=== PATIENT | male | born 1950 | race Caucasian/White ===

== ENCOUNTER → 2017-05-20 | Outpatient (CLI) | payer MEDICARE ==
--- NOTE | 2017-05-20 16:42 | KCIC ---
Limited right foot ultrasound dated 05/20/2017. No comparison available. Clinical indication: Palpable lump posterior right foot. Findings: Sonographic imaging was performed over the area of palpable abnormality. Within the subcutaneous tissues just deep to the skin surface, there is a well-circumscribed nodular focus that is isoechoic to subcutaneous fat, measuring 8 mm maximum dimension. No increased vascularity. No abnormal shadowing or cystic component. IMPRESSION: Small subcutaneous nodule within the dorsal aspect of the foot, nonspecific but most likely related to a small lipoma. Recommend physical exam correlation. Electronically signed by: Hammad Vasquez MD (05/20/2017 4:38 PM) [facility]
== END | disposition home or self-care (01) ==
LOC: KCIC US 15:07
PROVIDERS: ATTEND Podiatrist Foot & Ankle Surgery
DX: M25.474 Effusion, right foot (principal)
CPT/HCPCS: 76881

== ENCOUNTER 2017-06-07 09:54 | Day surgery (SDC) | payer MEDICARE ==
[~2017-06-07] VITALS: Ht 182.9 cm; Wt 111.1 kg
[~2017-06-07 09:54] MED LIST: BUPIVACAINE MPF 0.5% 30 ML VIAL. ONE; DEXAMETHASONE SOD PHOS 4 MG/ML VIAL ONE; DOXA4TAB2 PO; HYDROmorphone 2 MG/ML VIAL IV PRN; IV RINGERS,LACTATED 1000ML 1,000 ML IV SCH; LACT1CAP6 PO; LIDOCAINE 1% PF 2 ML VIAL. ID PRN; LIDOCAINE 1% PF 30 ML VIAL. ONE; LOSA50TA6 PO; METO100T2 PO; MORPHINE SULFATE 2 MG/ML DISP.SYRIN. IV PRN; MULT1TAB52 PO; ONDANSETRON PF 4 MG/2 ML VIAL. IV PRN; POVIDONE-IODINE 10% TOPICAL OINTMENT 28GM TUBE. TP ONE; PROCHLORPERAZINE 10 MG/2 ML VIAL. IV PRN; fentaNYL PF VIAL 100 MCG/2 ML VIAL IV PRN
[2017-06-07 10:49] LABS: CALCIUM 9.1 mg/dL (8.5-10.1); CREATININE 1.1 mg/dL (0.7-1.3); POTASSIUM 4.2 mmol/L (3.5-5.1)
[2017-06-07 11:02] LABS: BASO % 1 % (0-3); EOS % 2 % (0-3); HEMATOCRIT 45.1 % (39.0-53.0); HEMOGLOBIN 15.7 g/dL (13.0-17.5); LYMPH # 1.7 x10^3/uL (1.0-4.8); LYMPH % 31 % (24-48); MEAN CORPUSCULAR HEMOGLOBIN 31 pg (25-35); MEAN CORPUSCULAR HGB CONC 35 g/dL (31-37); MEAN CORPUSCULAR VOLUME 88 fL (79-100); MONO % 6 % (0-9); NEUT % 61 % (31-73); PLATELET COUNT 182 x10^3/uL (140-400); RED BLOOD COUNT 5.11 x10^6/uL (4.30-5.70); RED CELL DISTRIBUTION WIDTH 13.1 % (11.5-14.5); WHITE BLOOD COUNT 5.5 x10^3/uL (4.0-11.0)
[2017-06-07] MEDS ORDERED: LIDOCAINE 2% PF Vial for OR 5 ML VIAL. ONE (11:27)
[2017-06-07] MEDS ORDERED: PROPOFOL 20 ML IV ONE (11:27)
--- NOTE | 2017-06-07 12:10 | HP ---
ADMIT DATE: 06/07/2017 CHIEF COMPLAINT: Right foot plantar lipoma. 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 They did ultrasound, confirms a growth there. Dr. Ravi asked to us see him as a preoperative evaluation. PAST MEDICAL HISTORY: Permanent pacemaker, hypotension and sleep apnea. ALLERGIES: FORMALDEHYDE, NICKEL AND CODEINE. FAMILY HISTORY: Noncontributory. SOCIAL HISTORY: He is a retired president and chief executive officer. He does not drink, smoke or take drugs. MEDICATIONS: Reviewed. REVIEW OF SYSTEMS: Negative other than his right foot. PHYSICAL EXAMINATION: VITAL SIGNS: Stable. GENERAL: He is alert, cooperative. His is present. She is good support for him. HEART: Sounds were normal. ABDOMEN: Soft, a little distended. EXTREMITIES: The right foot has a lipoma on the plantar surface. ASSESSMENT AND PLAN: Right foot lipoma. The patient seems at minimal risk for intraoperative or postoperative complications. We will go ahead and clear him for surgery for now. Postoperatively, he is going to need a wound care, physical therapy and occupational therapy. Continue his home meds, p.r.n. narcotics. Thank you very much for allowing us to participate in the care of this nice gentleman. ZOIE HAILE DO DR: SHO/evaristo JOB#: [id number] / [id number]
[2017-06-07] MEDS ORDERED: MIDAZOLAM HCL/PF 2 MG/2 ML VIAL. ONE (12:20)
[2017-06-07] MEDS ORDERED: fentaNYL PF VIAL 100 MCG/2 ML VIAL ONE (12:20)
--- NOTE | 2017-06-07 13:03 | PDOC4 ---
OPERATIVE NOTE: Surgeon: Breonna Preop DX: soft tissue mass lipoma right foot post op DX: Same Anesthesia: MAC with local Hemostasis: right ankle tourniquet at 250mmHg x 14 minutes EBL: 1mL Materials: 3-0 vicryl, 3-0 nylon Intraopertive findings: note thickening sub skin excised with white non descript ill organized fatty tissue removed and sent to pathology as specimen Patient tolerated anesthesia and procedure well transported to PACU with VSS and VSI to right foot KIRSTIE MCDONALD DPM Jun 07, 2017 13:03
[2017-06-07] MEDS ORDERED: IV RINGERS,LACTATED 1000ML 1,000 ML IV ONE (13:45)
--- NOTE | 2017-06-07 13:46 | OP ---
DATE OF SURGERY: PREOPERATIVE DIAGNOSIS: Lipoma, plantar second metatarsal, right foot. POSTOPERATIVE DIAGNOSIS: Lipoma, plantar second metatarsal, right foot. PROCEDURE: Excision of soft tissue mass lipoma, right foot. SURGEON: Trinity Ravi DPM ANESTHESIA: MAC with local. HEMOSTASIS: Right ankle tourniquet at 250 mmHg. INDICATIONS: The patient is a 66-year-old male, complains of a painful bump on the sub-second metatarsal head of the right foot. Diagnostic ultrasound was ordered and performed on 05/20/2017. Per impression, there was a small subcutaneous nodule within the plantar aspect of the foot, which is nonspecific, but most likely related to small lipoma. Recommend physical exam correlation. According to the findings, within the subcutaneous tissue just deep to the surface of the skin, there is a well-circumscribed nodular focus ____ subcutaneous fat measuring 8 mm maximum dimension. No increased vascularity, no abnormal shadowing or cystic component. Due to the amount of pain the patient was having, he wished to proceed with excision. Discussed possible risks, benefits and complications to include delayed healing, nonhealing, need for further surgery, recurrence, pain, swelling, DVT, pulmonary embolism, loss of foot, limb or life. All questions were answered. No guarantees made. The patient signed consent freely and put in chart. DESCRIPTION OF PROCEDURE: The patient was transported to the operating room via a cart and placed on the operating room table in supine position. Final verification of the surgery, the patient and limb was performed. He was given IV Ancef preoperatively. Monitored anesthesia care. IV sedation was given, and a local infiltrative block was given to the right plantar foot in the area of the second ray consisting of a 1:1 mixture of 1% lidocaine plain and 0.5% Marcaine plain. The right foot was prepped and draped in the usual aseptic manner, and a right ankle tourniquet well padded was placed over the right ankle. The right foot was then exsanguinated with Esmarch bandage, and then, the right ankle tourniquet was inflated to 250 mmHg. Attention was directed to the sub-second metatarsal head where two converging semielliptical incisions were made distal to proximal, 3 cm in length. The incision was deepened and noted that there was a thickening of the subcutaneous tissue with noted white thickened fibrotic lipoma tissue, which was removed and sent to pathology. There was no deeper organized mass. We removed any suspicious white colored fat amongst the yellow. This was sent to pathology. It was then copiously irrigated with sterile saline, and the wound was reapproximated with 3-0 Vicryl and 3-0 nylon. The patient was then given a postop injection of 4 mg of Decadron, and the wound was dressed with Betadine ointment, Adaptic gauze, 4 x 4 and a Kerlix bandage and an Shelton bandage. Ankle tourniquet was deflated after 14 minutes, and good perfusion was noted to all digits of the right foot. The patient is to keep the dressing clean, dry and intact. We will follow up in clinic in 1 week. We will give the patient postop instructions in the chart. TRINITY RAVI DPM DR: Jovana JOB#: [id number] / [id number]
[2017-06-07 14:14] VITALS: BP 156/71
--- NOTE | 2017-06-09 13:20 | PATHOLOGY ---
PATHOLOGY REPORT * * * * * * * * FINAL DIAGNOSIS: Segments of skin and subcutaneous tissue, right foot: - Stromal myxoid degeneration. COMMENT: There is no evidence of malignancy. (JPM:neeta; 06/09/2017) REPORT ELECTRONICALLY SIGNED BY: Joe Ramirez M.D. DATE/TIME: 06/09/2017 13:19 * * * * * * * * GROSS PATHOLOGY: The specimen is received in formalin labeled "Sirena Tomlinson, soft tissue mass right foot". Received are multiple segments of yellow-scwhab soft tissue admixed with pale schwab skin measuring 2.5 x 1.5 x 0.8 cm in aggregate dimensions. Sectioning reveals pale schwab to yellow-schwab cut surfaces throughout. The specimen is submitted representatively in cassette A1. (CAA; 06/08/2017) INITIAL CPT CODE(S): A; 14655 Professional services [place] [place] [address] Technical services performed by [facility] at [address] [place] [address], [facility] [address] [address]. SPECIMEN(S) RECEIVED: A.Soft tissue mass right foot CLINICAL HISTORY: Soft tissue mass, right foot PATIENT: SIRENA TOMLINSON /AGE: 2 1950 (Age: 66) PATIENT #: [id number] ALT CASE #: SPECIMEN COLLECTION DATE: 06/07/2017 SPECIMEN RECEIVED DATE: 06/07/2017 [facility] - [address] [place] [address] - PHONE: [phone] * * * END OF REPORT * * *
== END 2017-06-07 14:19 | disposition home or self-care (01) ==
LOC: SURG 09:54
PROVIDERS: ATTEND Podiatrist Foot & Ankle Surgery
DX: D17.23 Benign lipomatous neoplasm of skin and subcutaneous tissue of right leg (principal); I10 Essential (primary) hypertension; G47.30 Sleep apnea, unspecified; F17.200 Nicotine dependence, unspecified, uncomplicated; Z88.8 Allergy status to other drugs, medicaments and biological substances; Z95.0 Presence of cardiac pacemaker; Z87.39 Personal history of other diseases of the musculoskeletal system and connective tissue; Z72.89 Other problems related to lifestyle
CPT/HCPCS: 28039; 36415; 80048; 85025; 88304; C1769; J0690; J1100; J2250; J2704; J3010; J3490; J2001

== ENCOUNTER → 2018-11-21 | Day surgery (SDC) | payer MEDICARE ==
[~2018-11-21] VITALS: Ht 177.8 cm; Wt 114.8 kg
[~2018-11-21] MED LIST changes: +ACETAMINOPHEN 500 MG TABLET PO ONE; +BUPIVACAINE MPF 0.25% 30 ML VIAL. ONE; +CHOL2000 PO; -DEXAMETHASONE SOD PHOS 4 MG/ML VIAL ONE; +DOXA4TAB3 PO; +EPINEPHrine 1 MG/ML VIAL ONE; +HYDROcodone/APAP 7.5/325MG 1 TAB TABLET PO PRN; +IRBE300T3 PO; +KETOROLAC 30 MG/ML INJ FOR OR. INJ ONE; -LIDOCAINE 1% PF 30 ML VIAL. ONE; +LIDOCAINE 2% PF 5 ML VIAL. ONE; +LOSA-73 PO; -LOSA50TA6 PO; +MELOXICAM 7.5 MG TABLET PO PRN; -METO100T2 PO; +METO100T7 PO; +MIDAZOLAM HCL/PF 2 MG/2 ML VIAL. ONE; -MORPHINE SULFATE 2 MG/ML DISP.SYRIN. IV PRN; +MORPHINE SULFATE 2 MG/ML VIAL. IV PRN; +ONDANSETRON PF 4 MG/2 ML VIAL. ONE; +OXYC1TAB19 PO; +PHENYLEPHRINE 10 MG/ML VIAL. ONE; +PHENYLEPHRINE in 0.9% NACL PF 1 MG/10 ML SYRINGE. IV ONE; -POVIDONE-IODINE 10% TOPICAL OINTMENT 28GM TUBE. TP ONE; +PROPOFOL 20 ML IV ONE; +SEVOFLURANE 61 TO 120 MINUTES. IH ONE; +VITA1CAP PO
[2018-11-21 09:14] LABS: BILIRUBIN,URINE NEGATIVE (NEG); CLARITY,URINE CLEAR; COLOR,URINE YELLOW; NITRITE,URINE NEGATIVE (NEG); PH,URINE 7.5; PROTEIN,URINE NEGATIVE (NEG-TRACE); UROBILINOGEN,URINE 0.2 mg/dL (0.2 mg/dL)
--- NOTE | 2018-11-21 09:26 | RAD ---
CHEST PA LATERAL Clinical indications: pre op shoulder replacement, history of hypertension COMPARISON: None available. Findings: No acute lung infiltrate or pleural effusion or pulmonary edema or lung mass or pneumothorax is seen. Bipolar atrioventricular pacemaker is in place via a right subclavian approach. The heart size, pulmonary vasculature, mediastinum and both tessie are otherwise unremarkable. There is a mild compression of a mid thoracic vertebral body of indeterminate age. This may represent T7. Impression: No acute lung infiltrate. Pacemaker. Normal heart size. Mild compression fracture of the superior endplate of T7 of indeterminate age. Electronically signed by: Viraj Scott MD (11/21/2018 9:23 AM) [facility]
[2018-11-21 09:29] LABS: BACTERIA,URINE FEW /HPF (0-FEW); RBC,URINE OCC /HPF (0-2); SQUAMOUS EPITHELIAL CELL,UR OCC /LPF; WBC,URINE RARE /HPF (0-4)
--- NOTE | 2018-11-21 09:31 | EKG ---
[facility] [address] [place] [address] Test Date: 2018-11-21 Test Time: 09:30:59 Pat Name: SIRENA LICEA Department: Room: [place] [address] Gender: M Senior [employer] Applications Developer: ALIS : 1950 Requested By: DEBBIE QUISPE Order Number: [id number] Reading MD: Davi Reynolds Measurements Intervals [place] Rate: 66 P: 56 TX: 210 QRS: -6 QRSD: 90 T: 37 QT: 374 QTc: 394 Interpretive Statements SINUS RHYTHM VENTRICULAR PREMATURE COMPLEX(ES) LEFTWARD AXIS Electronically Signed On 11-27-2018 13:04:31 CDT by Davi Reynolds
[2018-11-21 10:04] LABS: BASO % 1 % (0-3); EOS # 0.1 x10^3/uL (0.0-0.7); EOS % 1 % (0-3); HEMATOCRIT 45.2 % (39.0-53.0); HEMOGLOBIN 15.5 g/dL (13.0-17.5); LYMPH # 1.8 x10^3/uL (1.0-4.8); LYMPH % 28 % (24-48); MEAN CORPUSCULAR HEMOGLOBIN 31 pg (25-35); MEAN CORPUSCULAR HGB CONC 34 g/dL (31-37); MEAN CORPUSCULAR VOLUME 89 fL (79-100); MONO # 0.4 x10^3/uL (0.0-1.1); MONO % 7 % (0-9); NEUT # 3.9 x10^3uL (1.8-7.7); NEUT % 63 % (31-73); PLATELET COUNT 179 x10^3/uL (140-400); RED BLOOD COUNT 5.06 x10^6/uL (4.30-5.70); RED CELL DISTRIBUTION WIDTH 13.3 % (11.5-14.5); WHITE BLOOD COUNT 6.2 x10^3/uL (4.0-11.0)
[2018-11-21 10:05] LABS: ALBUMIN 4.1 g/dL (3.4-5.0); CALCIUM 9.1 mg/dL (8.5-10.1); CREATININE 1.2 mg/dL (0.7-1.3); GFR 60.2; POTASSIUM 4.2 mmol/L (3.5-5.1)
[2018-11-21 10:07] LABS: PROTHROMBIN TIME PATIENT 13.6 SEC (11.7-14.0)
--- NOTE | 2018-11-21 13:58 | DISCH ---
DISCHARGE INSTRUCTIONS Condition on Discharge Condition on Discharge: Stable Activity After Discharge Activity Instructions for Disc: Other, see below (immediate active range of motion of shoulder rotator cuff strengthening as tolerated) Weight Bearing Status after Di: Other, see below (limit resisted elbow flexion to 5 pounds force) Diet after Discharge Diet after Discharge: Regular Wound Incision Care Wound/Incision Care: Ice to area for comfort, Change dressing (remove dressing in 2 days may then shower no soaking until sutures removed) Community/Resources/Services Services at Discharge: PT EVALUATE & TREAT (immediate active passive range of motion and strengthening as tolerated left shoulder) Contacting the DREloy after DC Call your doctor for: Concerns you may have Follow-Up Follow up with: Dr. Kilgore 10 days DEBBIE KILGORE MD Nov 21, 2018 13:57
--- NOTE | 2018-11-21 14:10 | PDOC4 ---
Operative Note Operative Note Date of surgery: 11/21/2018 Preoperative diagnosis: Suspected rotator cuff tear Postoperative diagnosis: Complex SLAP tear with involvement biceps anchor, partial thickness bursal sided rotator cuff fraying with impingement Operative procedure: Left shoulder arthroscopy biceps tenodesis and debridement of superior labrum and partial thickness supraspinatus tear,subacromial decompression Surgeon: Magui Anesthesia: Gen. plus scalene block Estimated blood loss: 10 mL Complications: None Operative indications: Patient is a 68-year-old male with left shoulder pain and weakness. He was unable to get an MRI due to the presence of a pacemaker and suspected had a rotator cuff tear. I had gone over with him the possibility of repair versus addressing other pathology even a backup plan if we haven't irreparable rotator cuff tear. We generally discussed the restrictions and the rationale for those possibility of continued pain nonhealing nerve or blood vessel damage infection medical or other anesthetic complications among others all his questions were answered he wishes to proceed with surgical evaluation and treatment. Operative text: Patient was identified procedure verified patient placed in the supine position on the operating table. After adequate amounts of general anesthesia plus a pre-existing scalene block were obtained he was placed with the Tmax head rest in semi-beachchair position with the spider arm bill and the left upper extremity was prepped and draped in standard sterile fashion. After timeout was performed patient procedure identified and verified, standard posterior portal established an anterior portal established using spinal needle localization and the shoulder joint was systematically examined glenohumeral joint was noted to be in good condition he had a very involved superior labral tear compromising the biceps anchor and biceps tendon was cut and tagged and the superior labrum extensively debrided. Undersurface mild rotator cuff tear was likewise debrided but overall had minimal involvement at the joint surface subscapularis was intact as was the bare area of the humerus and capsule ligament structures. Subacromial space was then entered extensive bursectomy was performed as he had significant impingement findings and some partial- thickness fraying of the bursal side of the rotator cuff not requiring repair. Light debridement was carried out a anterior acromial spur was removed with a arthroscopic bur to a type I acromion. The acromioclavicular joint capsule was preserved. Bony fragments were then removed and arthroscopic biceps tenodesis was carried out with a Monique Quattro bolt tenodesis screw 9 x 16 mm excellent fixation and tensioning the biceps was noted with maintenance of the biceps contour. Joint was drained of arthroscopic fluid portals were closed sterile dressings were applied patient was returned to recovery room in stable condition having tolerated procedure well. DEBBIE QUISPE MD Nov 21, 2018 14:10
[2018-11-21 15:15] VITALS: BP 118/68
== END | disposition home or self-care (01) ==
LOC: UNDOADMIN 08:27 → OPSVCOP 08:27 → OPSVCIP 08:27 → EDSTATUS 16:45
PROVIDERS: ATTEND Orthopaedic Surgery
DX: S43.432A Superior glenoid labrum lesion of left shoulder, initial encounter (principal); S46.012A Strain of muscle(s) and tendon(s) of the rotator cuff of left shoulder, initial encounter; M75.42 Impingement syndrome of left shoulder; Z79.01 Long term (current) use of anticoagulants; I49.5 Sick sinus syndrome; G47.33 Obstructive sleep apnea (adult) (pediatric); Z95.0 Presence of cardiac pacemaker; Z85.828 Personal history of other malignant neoplasm of skin; Z98.890 Other specified postprocedural states; Z83.3 Family history of diabetes mellitus; Z82.49 Family history of ischemic heart disease and other diseases of the circulatory system; Z87.891 Personal history of nicotine dependence; Z72.89 Other problems related to lifestyle; Z79.899 Other long term (current) drug therapy; Z88.5 Allergy status to narcotic agent; Z88.8 Allergy status to other drugs, medicaments and biological substances; X58.XXXA Exposure to other specified factors, initial encounter; Y93.89 Activity, other specified; Y92.89 Other specified places as the place of occurrence of the external cause; Y99.8 Other external cause status
CPT/HCPCS: 29823; 29828; 36415; 71046; 80048; 81001; 82040; 82306; 85025; 85610; 85651; 85730; 86850; 86900; 86901; 87641; 93005; A7015; C1713; J0171; J0696; J1885; J2001; J2250; J2370; J2405; J2704; J3490; J7030; J7120

== ENCOUNTER → 2020-02-14 | Outpatient (CLI) | payer MEDICARE ==
[2018-11-21 15:15] VITALS: BP 118/68
[~2020-02-14] MED LIST changes: -ACETAMINOPHEN 500 MG TABLET PO ONE; -BUPIVACAINE MPF 0.25% 30 ML VIAL. ONE; -BUPIVACAINE MPF 0.5% 30 ML VIAL. ONE; -EPINEPHrine 1 MG/ML VIAL ONE; -HYDROcodone/APAP 7.5/325MG 1 TAB TABLET PO PRN; -HYDROmorphone 2 MG/ML VIAL IV PRN; +IRBE300T23 PO; -IRBE300T3 PO; -IV RINGERS,LACTATED 1000ML 1,000 ML IV SCH; -KETOROLAC 30 MG/ML INJ FOR OR. INJ ONE; -LIDOCAINE 1% PF 2 ML VIAL. ID PRN; -LIDOCAINE 2% PF 5 ML VIAL. ONE; -MELOXICAM 7.5 MG TABLET PO PRN; -MIDAZOLAM HCL/PF 2 MG/2 ML VIAL. ONE; -MORPHINE SULFATE 2 MG/ML VIAL. IV PRN; +MULT-445 PO; -MULT1TAB52 PO; -ONDANSETRON PF 4 MG/2 ML VIAL. IV PRN; -ONDANSETRON PF 4 MG/2 ML VIAL. ONE; -PHENYLEPHRINE 10 MG/ML VIAL. ONE; -PHENYLEPHRINE in 0.9% NACL PF 1 MG/10 ML SYRINGE. IV ONE; -PROCHLORPERAZINE 10 MG/2 ML VIAL. IV PRN; -PROPOFOL 20 ML IV ONE; -SEVOFLURANE 61 TO 120 MINUTES. IH ONE; -fentaNYL PF VIAL 100 MCG/2 ML VIAL IV PRN
--- NOTE | 2020-02-14 14:59 | KCIC ---
EXAM: Bilateral hips 2 views. HISTORY: Bilateral hip osteoarthritis. COMPARISON: None. FINDINGS: There is mildly decreased femoral head/neck offset anteriorly bilaterally. The joint spaces of both hips are maintained. No fractures are identified. A bone island is noted in the left lesser trochanter. IMPRESSION: 1. Correlate for mild femoroacetabular impingement anteriorly bilaterally. Joint spaces are maintained. Electronically signed by: Angel Veliz MD (02/14/2020 2:55 PM) [id number]
== END | disposition home or self-care (01) ==
LOC: KCIC 11:27
PROVIDERS: ATTEND Family Medicine
DX: M16.0 Bilateral primary osteoarthritis of hip (principal); M89.8X5 Other specified disorders of bone, thigh
CPT/HCPCS: 73521

== ENCOUNTER → 2020-11-24 | Outpatient (CLI) | payer MEDICARE ==
[2018-11-21 15:15] VITALS: BP 118/68
[2020-11-24 10:00] LABS: BASO % 1 % (0-3); EOS # 0.1 x10^3/uL (0.0-0.7); EOS % 2 % (0-3); HEMATOCRIT 44.1 % (39.0-53.0); HEMOGLOBIN 15.2 g/dL (13.0-17.5); LYMPH # 1.9 x10^3/uL (1.0-4.8); LYMPH % 30 % (24-48); MEAN CORPUSCULAR HEMOGLOBIN 31 pg (25-35); MEAN CORPUSCULAR HGB CONC 34 g/dL (31-37); MEAN CORPUSCULAR VOLUME 89 fL (79-100); MONO # 0.4 x10^3/uL (0.0-1.1); MONO % 6 % (0-9); NEUT % 62 % (31-73); PLATELET COUNT 183 x10^3/uL (140-400); RED BLOOD COUNT 4.96 x10^6/uL (4.30-5.70); RED CELL DISTRIBUTION WIDTH 13.1 % (11.5-14.5); WHITE BLOOD COUNT 6.4 x10^3/uL (4.0-11.0)
[2020-11-24 10:09] LABS: ALBUMIN 3.8 g/dL (3.4-5.0); CALCIUM 9.1 mg/dL (8.5-10.1); CREATININE 1.1 mg/dL (0.7-1.3); GFR 66.2; POTASSIUM 4.4 mmol/L (3.5-5.1)
--- NOTE | 2020-11-24 13:06 | RAD ---
EXAM: Chest, 2 views. HISTORY: Hypertension. Preoperative evaluation. COMPARISON: 11/21/2018 FINDINGS: 2 views of the chest are obtained. There is no infiltrate, pleural effusion or pneumothorax . The heart is normal in size. There is a cardiac pacemaker with leads unchanged in position. There i s a stable small nodule overlying the right lower lobe, likely due to a granuloma. IMPRESSION: No acute pulmonary finding. Electronically signed by: Lianna Lawrence MD (11/24/2020 1:03 PM) [id number]
[2020-11-25 02:11] LABS: HEMOGLOBIN A1C 5.5 % (4.8-5.6)
== END ==
LOC: SURGPAT 13:02
PROVIDERS: ATTEND Orthopaedic Surgery
DX: Z01.818 Encounter for other preprocedural examination (principal); M17.12 Unilateral primary osteoarthritis, left knee; R91.1 Solitary pulmonary nodule; Z95.0 Presence of cardiac pacemaker
CPT/HCPCS: 36415; 71046; 80048; 82040; 82306; 83036; 85025; 85610; 85651; 85730; 87641

== ENCOUNTER → 2021-02-25 | Outpatient (CLI) | payer MEDICARE ==
[2018-11-21 15:15] VITALS: BP 118/68
[~2021-02-25] MED LIST changes: +CBD PO; +IBUP-1060 PO; +[UNRECOGNIZED DRUG - CODE] PO; +fish oil PO; +tumeric PO
== END ==
LOC: LAB 09:57
PROVIDERS: ATTEND Orthopaedic Surgery
DX: Z01.812 Encounter for preprocedural laboratory examination (principal); Z20.822 Contact with and (suspected) exposure to COVID-19; M75.101 Unspecified rotator cuff tear or rupture of right shoulder, not specified as traumatic
CPT/HCPCS: U0003; U0005

== ENCOUNTER 2021-02-27 10:07 | Day surgery (SDC) | payer MEDICARE ==
[~2021-02-27] VITALS: Ht 177.8 cm; Wt 115.0 kg
[~2021-02-27 10:07] MED LIST changes: -CBD PO; +HYDROmorphone 2 MG/ML VIAL IVP PRN; +IV RINGERS,LACTATED 1000ML 1,000 ML IV SCH; +MORPHINE SULFATE 2 MG/ML INJ. IVP PRN; +PROCHLORPERAZINE 10 MG/2 ML VIAL. IVP PRN; +fentaNYL PF VIAL 100 MCG/2 ML VIAL IVP PRN; -fish oil PO; -tumeric PO
[2021-02-27] MEDS ORDERED: CBD PO (10:18)
[2021-02-27] MEDS ORDERED: tumeric PO (10:19)
[2021-02-27] MEDS ORDERED: fish oil PO (10:19)
[2021-02-27 10:24] VITALS: BP 151/88
[2021-02-27] MEDS ORDERED: DEXAMETHASONE SOD PHOS 4 MG/ML VIAL ONE (12:35)
[2021-02-27] MEDS ORDERED: LIDOCAINE 2% PF 5 ML VIAL. ONE (12:35)
[2021-02-27] MEDS ORDERED: PROPOFOL 10 MG/ML (20ML) VIAL. IV ONE (12:35)
[2021-02-27] MEDS ORDERED: MIDAZOLAM HCL/PF 2 MG/2 ML VIAL. ONE (12:37)
[2021-02-27] MEDS ORDERED: BUPIVACAINE MPF 0.75% 30 ML VIAL. ONE (12:37)
[2021-02-27 15:12] VITALS: BP 133/56
[2021-02-27] MEDS ORDERED: OXYC1TAB19 PO (15:17)
--- NOTE | 2021-02-27 15:19 | DISCH ---
DISCHARGE INSTRUCTIONS Condition on Discharge Condition on Discharge: Stable Activity After Discharge Activity Instructions for Disc: Other, see below (No active lifting of right elbow away from the body. May do fine motor use such as eating writing typing and similar) Weight Bearing Status after Di: Non weight bearing Diet after Discharge Diet after Discharge: Regular Wound Incision Care Wound/Incision Care: Ice to area for comfort, Change dressing (Remove dressing in 2 days may then shower no soaking until sutures removed) Community/Resources/Services Services at Discharge: PT EVALUATE & TREAT (Passive range of motion of right shoulder only for 1 month postoperatively) Contacting the DREloy after DC Call your doctor for: Concerns you may have Follow-Up Follow up with: Dr. Kilgore or Vladislav 7 to 10 days DEBBIE KILGORE MD Feb 27, 2021 15:18
[2021-02-27] MEDS ORDERED: oxyCODONE/APAP 7.5/325 1 TAB TABLET ONE (15:43)
[2021-02-27] MEDS ORDERED: oxyCODONE/APAP 7.5/325 1 TAB TABLET PO ONE (15:45)
--- NOTE | 2021-02-27 16:20 | PDOC4 ---
Operative Note Operative Note Date of surgery: 02/27/2021 Preoperative diagnosis: Right shoulder rotator cuff tear and labral tear Postoperative diagnosis: Same with full-thickness distal supraspinatus tear and extensive labral fraying Operative procedure: Right shoulder arthroscopy arthroscopic rotator cuff repair and extensive labral debridement Surgeon: Magui Assist: Reinaldo Sparks personal banking assistant Anesthesia: General plus scalene block Estimated blood loss: 10 cc Complications: None Operative indications: Please see my preoperative clinic notes for detailed operative indications and note that we had covered the rationale today for addressing any other relevant pathology as well as the full-thickness rotator cuff tear shown on MRI. We covered the possibility of continued pain nonhealing infection nerve or blood vessel damage medical or other anesthetic complications among others and he wishes to proceed with surgical evaluation and treatment Operative text: Patient was identified procedure verified patient placed in the supine position on the operating table. After adequate amounts of general anesthesia plus a pre-existing scalene block were obtained he was placed in the decubitus position right side up all bony promises were well-padded shoulder was found to have full range of motion and no instability. The right shoulder was then prepped and draped in standard sterile fashion and placed in the arthroscopic arm bill with a total of 10 pounds of traction. After timeout was performed patient procedure identified and verified a standard posterior portal was established an anterior portal established using spinal needle localization and the shoulder joint was systematically examined. He was noted to have some fraying of the superior labrum which was debrided back to stable tissue biceps anchor and biceps tendon itself were intact without evidence of subluxation. He did have a full-thickness tear of the distal supraspinatus normal bare area of the humerus and normal capsuloligamentous structures with good preservation of the articular cartilage. Subacromial space was then entered bursa was cleared to allow visualization and the full-thickness distal supraspinatus tear was verified. The rotator cuff footprint was debrided back to stable bleeding tissue and a total of 2 double loaded 2.9 juggernaut Bi[employer] anchors were placed and sutures placed in a simple fashion and anchored laterally with a [facility] [employer] lateral row anchor with excellent watertight repair verified in all degrees of internal/external rotation. Shoulder joint was drained of arthroscopic fluid portals were closed with nylon suture. Sterile dressings were applied and immobilizer was placed and patient was returned to recovery room in stable condition having tolerated the procedure well. Reinaldo bernstein assist was present for the procedure assisted in patient positioning prepping draping suture management closure and dressings DEBBIE QUISPE MD Feb 27, 2021 16:20
--- NOTE | 2021-03-03 10:04 | PDOC ---
Date and Time Midazolam 2mg was administered in preop holding area prior to regional block placement 02/27/2021. Current Medications Current Medications Fentanyl Citrate (Fentanyl 2ml Vial) 25 mcg PRN Q5MIN PRN IVP MILD PAIN 1-3; Start 02/27/21 at 06:00; Stop 02/27/21 at 16:07; Status DC Fentanyl Citrate (Fentanyl 2ml Vial) 50 mcg PRN Q5MIN PRN IVP MODERATE PAIN 4- 6; Start 02/27/21 at 06:00; Stop 02/27/21 at 16:07; Status DC Morphine Sulfate (Morphine Sulfate) 1 mg PRN Q10MIN PRN IVP SEVERE PAIN 7-10; Start 02/27/21 at 06:00; Stop 02/28/21 at 05:59; Status UNV Ringer's Solution 1,000 ml @ 30 mls/hr Q24H IV Last administered on 02/27/21at 10:45; Start 02/27/21 at 06:00; Stop 02/27/21 at 16:07; Status DC Hydromorphone HCl (Dilaudid) 0.5 mg PRN Q10MIN PRN IVP SEVERE PAIN 7-10, 2nd CHOICE; Start 02/27/21 at 06:00; Stop 02/28/21 at 05:59; Status UNV Prochlorperazine Edisylate (Compazine) 5 mg PACU PRN PRN IVP NAUSEA, MRX1; Start 02/27/21 at 06:00; Stop 02/27/21 at 16:07; Status DC Cefazolin Sodium/ Dextrose 50 ml @ 100 mls/hr 1X PREOP PRN IV PRIOR TO PROCEDURE Last administered on 02/27/21at 13:20; Start 02/27/21 at 06:00; Stop 02/27/21 at 16:07; Status DC Propofol (Diprivan) 200 mg STK-MED ONCE IV ; Start 02/27/21 at 12:35; Stop 02/27/21 at 12:36; Status DC Dexamethasone Sodium Phosphate (Decadron) 4 mg STK-MED ONCE .ROUTE ; Start 02/27/21 at 12:35; Stop 02/27/21 at 12:36; Status DC Lidocaine HCl (Lidocaine Pf 2% Vial) 5 ml STK-MED ONCE .ROUTE ; Start 02/27/21 at 12:35; Stop 02/27/21 at 12:36; Status DC Midazolam HCl (Versed) 2 mg STK-MED ONCE .ROUTE ; Start 02/27/21 at 12:37; Stop 02/27/21 at 12:37; Status DC Bupivacaine HCl (Sensorcaine Mpf 0.75%) 30 ml STK-MED ONCE .ROUTE ; Start at 12:37; Stop 02/27/21 at 12:37; Status DC Oxycodone/ Acetaminophen (Percocet 7.5/ 325) 1 tab 1X ONCE PO Last administ ered on 02/27/21at 15:45; Start 02/27/21 at 15:45; Stop 02/27/21 at 15:46; Status DC Oxycodone/ Acetaminophen (Percocet 7.5/ 325) 1 tab STK-MED ONCE .ROUTE ; Start 02/27/21 at 15:43; Stop 02/27/21 at 15:44; Status DC Active Scripts Active Percocet 7.5-325 Mg Tablet (Oxycodone/Acetaminophen) 1 Each Tablet 1 Tab PO PRN Q4HRS PRN Reported [tumeric] PO DAILY [fish oil] PO DAILY [Cbd] PO DAILY Emergen-C Immune Plus Packet (Ascorbic Acid/Multivit-Min) 1,000 Mg Effpowdpkt 1,000 Mg PO DAILY Ibuprofen 800 Mg Tablet 800 Mg PO PRN Q6HRS PRN Doxazosin Mesylate 4 Mg Tablet 1 Tab PO HS Irbesartan 300 Mg Tablet 300 Mg PO DAILY Vitamin D (Cholecalciferol (Vitamin D3)) 2,000 Unit Capsule 1 Cap PO DAILY Vitamin B Complex 1 Each Capsule 1 Each PO DAILY Probiotic (Lactobacillus Acidophilus) 1 Each Capsule 1 Each PO DAILY Metoprolol Tartrate 100 Mg Tablet 100 Mg PO HS SUDEEP CATHERINE MD Mar 03, 2021 10:04
== END 2021-02-27 16:04 | disposition home or self-care (01) ==
LOC: SURG 10:07
PROVIDERS: ATTEND Orthopaedic Surgery
DX: M75.101 Unspecified rotator cuff tear or rupture of right shoulder, not specified as traumatic (principal); I10 Essential (primary) hypertension; G47.30 Sleep apnea, unspecified; E66.9 Obesity, unspecified; N40.0 Benign prostatic hyperplasia without lower urinary tract symptoms; M19.90 Unspecified osteoarthritis, unspecified site; Z85.828 Personal history of other malignant neoplasm of skin; Z79.899 Other long term (current) drug therapy; Z98.890 Other specified postprocedural states; Z88.5 Allergy status to narcotic agent; Z88.8 Allergy status to other drugs, medicaments and biological substances
CPT/HCPCS: 29827; 64415; A4565; A4930; C1713; J0690; J1100; J2250; J2704; J3490